=== PATIENT | male | born 1950 | race Caucasian/White ===

== ENCOUNTER 2017-06-08 16:31 | Inpatient (IN) | payer OTHER ==
[~2017-06-08] VITALS: Ht 185.4 cm; Wt 82.1 kg
--- NOTE | 2017-06-08 22:50 | NUR ---
PRE ADMISSION NOTE : The patient is a 67-year-old male who presents to [facility] for medically supervised withdrawal from ETOH. Patient reports NKA, is on Full Code, is on Cardiac Diet, is Fall and Seizures Precautions. The patient reports starting to use ETOH in 1965. Longest sober period was 10 years since 1980 to 1990. The patient denies a history of withdrawal-induced seizures, but often drinking to the point of blacking out. Patient denies history of SI/HI, denies history of audio and video hallucinations. Last used six bottles of beer 12 ounce each on 06/07/2017 at 2100. Upon intake assessment patient is alert and oriented x4 . CIWA 5. Patient reported the following symptoms of withdrawal: anxiety, restlessness, sweats, felt tremors, difficulty concentrating, anhedonia. Patient is cooperative, speech is clear and audible. Patient reports's "difficult hearing by right ear". Heart rate is regular. Patient denies SOB and chest pain. PERRLA, breathing is even and unlabored. VS: T: 98.8; BP: 158/88; HR: 72; RR:17; RA O2 SAT: 100%. Patient denies any pain at this time. Patient instructed on unit protocol of vitals Q4H and COWS/CIWA assessments. Patient verbalized understanding and agreement. Patient also instructed on policy regarding destruction of any controlled substances/prescriptions brought to facility, and handling of all medications. Patient verbalized understanding and agreement. Will complete admission assessment when patient is brought up to unit.
[2017-06-08 22:57] VITALS: BP 158/88
--- NOTE | 2017-06-08 22:57 | NUR ---
ADMISSION NOTE New patient is a 67 year old male admitted to [facility] on 06/08/2017 at 2257 for medically supervised safety withdrawal from Alcohol. Patient reports NKA. Patient placed on Full Code, Cardiac Diet, Fall and Seizures Precautions. Patient denies a history of withdrawal-induced seizures. Past Medical History: Coronary artery disease complicated by myocardial infarction; Dyslipidemia; Essential hypertension; Alcohol use disorder. Past Surgical History: Percutaneous coronary intervention with stent placement. Patient reports "I do not have PCP". Pre-assessment completed in intake. Patient unable provided UDS test at this time. Patient is ambulatory with steady gate, stable, A&Ox4, speech is clear. Height: 73 in, Weight:181 lbs by standing scale. VS upon admission: T: 98.8; BP: 158/88; HR: 72; RR:17; RA O2 SAT: 100%. Patient denies any pain at this time: "0/10". CIWA 5. The patient presented with anxiety, agitation, nervousness, tremors, diaphoresis, restless legs, and fatigue. Patient denies SI/HI. Upon initial assessment, patient's Respirations unlabored and even. Patient denies SOB and chest pain. Lungs Sounds are clear bilaterally. Bowel Sounds active in all x4 quadrants. Abdomen is soft and non-tender. PERRLA, brisk capillary refill, spoke maker equal and strong. Skin is warm and dry to touch. Patient has bruises on the BUE and BLE. Patient has laceration 2 cm on the left forearm. Dressing change with sterile gauze. Patient has closed healed laceration 8.5 cm with bruises on left scapula area. Pictures done and placed in chart. Patient reports the following Substances Use: 1 ."Alcohol PO "since 1965. Patient reports "consuming either three 22 ounce bottles of beer or six 12 ounce bottles of beer on a daily basis. Last used six bottles of beer 12 ounce each on 06/07/2017 at 2100. Longest sober period was 10 years since 1980 to 1990". Patient reports he is "never smoking ". Treatment History: " [facility] for thirty days in the 1980". Home Medications Reconciliation done. Patient oriented to his room, Nurse Call Light, [facility]. Encourage fluids as tolerated. Encourage to attend activities groups. All needs met. Safety measures on place. Call light within reach, bed in lowest position and locked, padded rails up bilaterally rails up bilaterally. Will continue to monitor closely.
--- NOTE | 2017-06-08 22:57 | NUR ---
ORDERED LORAZEPAM WAS NOT GIVEN Patient was admitted at 2257. Patient unable provided UDS test at this time.
[2017-06-08 23:23] LABS: ALANINE AMINOTRANSFERASE 23 U/L (16-63); ALKALINE PHOSPHATASE 79 U/L (50-136); AMYLASE 77 U/L (25-115); ASPARTATE AMINOTRANSFERASE 20 U/L (15-37); BILIRUBIN,TOTAL 2.2 mg/dL (0.2-1.0); CARBON DIOXIDE 28 mmol/L (21-32); CHLORIDE 102 mmol/L (98-107); CHOLESTEROL 191 mg/dL (<200); GLUCOSE 94 mg/dL (74-106); HDL CHOLESTEROL 99 mg/dL (40-60); POTASSIUM 3.8 mmol/L (3.5-5.1); TOTAL PROTEIN, SERUM 7.8 g/dL (6.4-8.2); TRIGLYCERIDES 107 MG/DL (30-150); UREA NITROGEN, BLOOD 19 mg/dL (7-18)
[2017-06-08 23:26] LABS: BASOPHILS # (AUTO) 0.1 K/uL (0.0-8.0); BASOPHILS % (AUTO) 0.7 % (0.0-2.0); EOSINOPHILS # (AUTO) 0.2 K/uL (0.0-0.7); EOSINOPHILS % (AUTO) 2.9 % (0.0-7.0); HEMATOCRIT 45.4 % (40-50); HEMOGLOBIN 15.6 G/DL (14.0-18.0); LYMPHOCYTES # (AUTO) 2.3 K/UL (0.8-4.8); MEAN CORPUSCULAR HEMOGLOBIN 30.2 UUG (27.0-31.0); MEAN CORPUSCULAR HGB CONC 34 g/dL (32.0-37.0); MEAN CORPUSCULAR VOLUME 88.2 FL (82.0-92.0); MONOCYTES # (AUTO) 0.6 K/UL (0.1-1.30); MONOCYTES % (AUTO) 7.5 % (0.0-11.0); NEUTROPHILS # (AUTO) 5.3 K/UL (1.8-8.9); NEUTROPHILS % (AUTO) 61.9 % (38.5-71.5); PLATELET COUNT (AUTO) 232 K/UL (150-450); RED BLOOD CELL COUNT(AUTO) 5.15 MIL/UL (4.7-6.1); WHITE BLOOD COUNT (AUTO) 8.5 K/UL (4.0-11.2)
[2017-06-08 23:39] LABS: ETHANOL < 3 MG/DL (0-0)
[2017-06-09] VITALS: BP 139/81
[2017-06-09] MEDS ORDERED: ASCO-340 PO (00:03)
[2017-06-09] MEDS ORDERED: LORA-588 PO (00:03)
[2017-06-09] MEDS ORDERED: NITR0.4T SL (00:03)
[2017-06-09] MEDS ORDERED: SULF1TAB48 PO (00:03)
[2017-06-09] MEDS ORDERED: METO25TA6 PO (00:03)
[2017-06-09] MEDS ORDERED: CLOP75TA33 PO (00:03)
[2017-06-09] MEDS ORDERED: UBID100C13 PO (00:03)
[2017-06-09] MEDS ORDERED: ASPI-618 PO (00:03)
[2017-06-09] MEDS ORDERED: ACET-2154 PO (00:03)
[2017-06-09] MEDS ORDERED: CHOL100045 PO (00:03)
[2017-06-09] MEDS ORDERED: ROSU5TAB PO (00:03)
[2017-06-09] MEDS ORDERED: MULT1TAB73 PO (00:03)
[2017-06-09 04:00] VITALS: BP 131/83
[2017-06-09 04:18] LABS: *AMPHETAMINE, URINE NEGATIVE (NEGATIVE); *BARBITURATE, URINE NEGATIVE (NEGATIVE); *CANNABINOID, URINE NEGATIVE (NEGATIVE); *COCCAINE, URINE NEGATIVE (NEGATIVE); *OPIATE, URINE NEGATIVE (NEGATIVE); *PHENCYCLIDINE SCREEN,URINE NEGATIVE (NEGATIVE)
--- NOTE | 2017-06-09 07:16 | NUR ---
END OF SHIFT NOTE: Patient is a 67 year old male admitted to [facility] on 06/08/2017 for medically supervised safety withdrawal from Alcohol, ordered 5 Day Ativan Taper. Patient reports NKA. Patient placed on Full Code, Cardiac Diet, Fall and Seizures Precautions. Patient denies a history of withdrawal-induced seizures. Past Medical History: Coronary artery disease complicated by myocardial infarction; Dyslipidemia; Essential hypertension; Alcohol use disorder. Past Surgical History: Percutaneous coronary intervention with stent placement. Patient reports the following Substances Use:."Alcohol PO "since 1965. Patient reports "consuming either three 22 ounce bottles of beer or six 12 ounce bottles of beer on a daily basis. Last used six bottles of beer 12 ounce each on 06/07/2017 at 2100. Longest sober period was 10 years since 1980 to 1990". Patient reports "never smoking ". Treatment History: " [facility] for thirty days in the 1980". Upon last assessment @0400 patient is CIWA 3. Patient presented with the following symptoms of withdrawal: mild anxiety, restlessness, sweats, felt tremors, and restlessness. Patient denies SI/HI. VS @0400: T: 98.8; BP: 158/88; HR: 72; RR:17; RA O2 SAT: 100%. Patient denies any pain at this time. Patient reports of difficult hearing by right ear. Respirations are even and unlabored. Patient denies SOB and chest pain. Heart rate is regular. Bowel Sounds active in all x4 quadrants. Abdomen is soft and non-tender. Skin is warm and dry to touch. Patient has bruises on the BUE and BLE. Patient has laceration 2 cm on the left forearm. Dressing change with sterile gauze. Patient has closed healed laceration 8.5 cm with bruises on left scapula area. Pictures done and placed in chart. Encourage fluids as tolerated. Encourage to attend activities groups. No Medications administrated during my shift. Patient slept 4 hours, intake 325 ml, voided x1. All needs met. Safety measures on place. Call light within reach, bed in lowest position and locked, padded rails up bilaterally. Patient endorsed to day shift nurse.
--- NOTE | 2017-06-09 07:45 | NUR ---
START OF SHIFT Rcvd client from ongoing nurse, client is in room, he is a/o x 3 (name, place, situation), he presents with anxious mood, flat affect. He reports chills, stomach cramps, restless legs and fatigue. Client denies any N/V/D or SI/HI. Encouraged client to increase fluid intake to facilitate detox. Encourage client to attend group therapy for skills to maintain sobriety. Client is a 67 y/o male admitted for withdrawal from alcohol. Client is on 5 day Ativan taper for withdrawal symptoms management (day 2), tolerating well. Last CIWA 3 @ 2400. Client had an uneventful night, he slept 4 hrs. He reports NKA, full code, regular. Client denies history of withdrawal-induced seizure. He is on seizure precautions. Call light within reach. Side rails up x2/padded, bed locked and in low position.
[2017-06-09 08:45] VITALS: BP 147/86
--- NOTE | 2017-06-09 09:02 | NUR ---
TB test administered ID to R forearm, client tolerated well.
[2017-06-09 12:37] VITALS: BP 130/87
[2017-06-09 16:55] VITALS: BP 139/88
--- NOTE | 2017-06-09 19:24 | NUR ---
END OF SHIFT Endorsed to incoming nurse, Client is a 67 y/o male admitted for withdrawal from alcohol. Client is on 5 day Ativan taper for withdrawal symptoms management (day 2), tolerating well. Last CIWA 8 @ 1700. Client is in bed, a/o x4, he presents with anxious mood. Adequate PO fluid intake 1500ml, void x 4, stool x 1. Client was not compliant with group therapy, encouragement needed. He reports NKA, full code, regular. Client denies history of withdrawal-induced seizure. He is on seizure precautions. Call light within reach. Side rails up x2/padded, bed locked and in low position.
[2017-06-09 20:00] VITALS: BP 136/91
--- NOTE | 2017-06-09 20:00 | NUR ---
START OF SHIFT Received 67 y/o, Male px admitted for withdrawal from alcohol. Px is alert oriented (name, place, situation). NKA, full code, regular. Px presents with anxious mood, flat affect. Px reports fatigue. Encouraged client to increase fluid intake to facilitate detox. Client denies history of withdrawal-induced seizure. He is on seizure precautions. Call light within reach. Side rails up x2/padded, bed locked and in low position.
[2017-06-10] VITALS: BP 139/80
[2017-06-10 04:00] VITALS: BP 120/81
--- NOTE | 2017-06-10 07:00 | NUR ---
END OF SHIFT Px is 67 y/o, Male admitted for withdrawal from alcohol. Px is alert oriented (name, place, situation). NKA, full code, regular. During the shift, Px presents with anxious mood, flat affect. Px reports fatigue. Encouraged client to increase fluid intake to facilitate detox. No PRN meds given. Last CIWA 4. Oral intake 900ml, voided 2x, no BM. Slept for 9.5hrs. Call light within reach. Side rails up x2/padded, bed locked and in low position.
--- NOTE | 2017-06-10 07:45 | NUR ---
START OF SHIFT Rcvd client from ongoing nurse, client is in bed, wearing IPCD (VTE 5) and tolerating well. Client is a/o x 4, he presents with anxious mood, flat affect. He reports feeling tired, restless legs, stomach cramps and chills. Client denies any N/V/D or SI/HI. Client is on anticoagulant therapy Clopidofrel 75mg daily. Encouraged client to increase fluid intake to facilitate detox. Encourage client to attend group therapy for skills to maintain sobriety. Client is a 67 y/o male admitted for withdrawal from alcohol. Client is on 5 day Ativan taper for withdrawal symptoms management (day 3), tolerating well. Last CIWA 4 @ 2400. Client had an uneventful night, he slept 9 hrs. He reports NKA, full code, regular. Client denies history of withdrawal-induced seizure. He is on seizure precautions. Call light within reach. Side rails up x2/padded, bed locked and in low position.
[2017-06-10 08:17] LABS: HEPATITIS B SURFACE AG Negative (Negative)
[2017-06-10 08:55] VITALS: BP 141/91
[2017-06-10 12:55] VITALS: BP 141/90
--- NOTE | 2017-06-10 12:57 | NUR ---
Nursing Notes 5 day Ativan taper changed to modified 4 day Ativan taper. 06/10/17 Ativan 1mg TID 06/11/17 Ativan 1mg Q12H Client notified and verbalized understanding.
[2017-06-10 16:55] VITALS: BP 129/86
--- NOTE | 2017-06-10 19:21 | NUR ---
END OF SHIFT Endorsed to incoming nurse, client is a 67 y/o male admitted for withdrawal from alcohol. Client is on 4 day Ativan taper for withdrawal symptoms management (day 3), tolerating well. Last CIWA 7 @ 1600. Adequate PPO fluid intake 1550mL, void x 3, stool x 1. Client is not compliant with group therapy d/withdrawal symptoms. He reports NKA, full code, regular. Client denies history of withdrawal-induced seizure. He is on seizure precautions. Call light within reach. Side rails up x2/padded, bed locked and in low position.
[2017-06-10 20:00] VITALS: BP 137/85
--- NOTE | 2017-06-10 20:00 | NUR ---
START OF SHIFT Received 67 y/o male admitted for withdrawal from alcohol. NKA, full code, regular. Ps is on seizure precautions. He presents with anxious mood, flat affect. Client is on anticoagulant therapy Clopidofrel 75mg daily. Encouraged client to increase fluid intake to facilitate detox. Client is on 5 day Ativan taper for withdrawal symptoms management, tolerating well. No complaints. CIWA 4. Call light within reach. Side rails up x2/padded, bed locked and in low position.
[2017-06-11] VITALS: BP 119/69
--- NOTE | 2017-06-11 | NUR ---
CIWA deferral CIWA deferred due that the px is sleeping, to assess if the px is awake per doctor's order. Respirations even and unlabored. We'll continue to monitor.
[2017-06-11 04:00] VITALS: BP 125/80
--- NOTE | 2017-06-11 07:17 | NUR ---
End of Shift Note Px is 67 y/o male admitted for withdrawal from alcohol. NKA, full code, regular. Ps is on seizure precautions. He presents with anxious mood, flat affect. During the shift. Encouraged client to increase fluid intake to facilitate detox. No complaints. Call light within reach. Side rails up x2/padded, bed locked and in low position. Oral intake of 1,750ml, voided 2x, BM 1x. Slept for 7 hrs. Well continue to monitor.
--- NOTE | 2017-06-11 07:47 | NUR ---
START OF SHIFT NOTE: Received report from lieutenant shift supervisor nurse. Pt is a 67 y/o male admitted for ETOH dependence. Pt is on an 5 day Ativan taper. Tolerating well. Pt is alert and oriented X4. Color good, skin warm and dry. Respirations even and unlabored. Resting in bed. Safety precautions observed. Call light within reach. Will continue to monitor.
[2017-06-11 08:16] VITALS: BP 142/80
--- NOTE | 2017-06-11 09:30 | NUR ---
VSS CIWA 1
[2017-06-11 12:24] VITALS: BP 135/66
--- NOTE | 2017-06-11 15:00 | NUR ---
VSS CIWA 1
[2017-06-11 17:23] VITALS: BP 148/81
--- NOTE | 2017-06-11 18:42 | NUR ---
END OF SHIFT REPORT: Report given to restaurant shift leader nurse. Pt is a 67 y/o male admitted for ETOH dependence. Pt is on an 5 day Ativan taper. Tolerating well. Pt is alert and oriented X4. Color good, skin warm and dry. Respirations even and unlabored. Vital signs have remained stable throughout shift. Last CIWA 1. Safety precautions observed. Call light within reach.
--- NOTE | 2017-06-11 19:30 | NUR ---
START OF SHIFT Report from AM nurse. 67 y/o male admitted on 06/08/17 for alcohol withdrawal. He is on a five day ativan taper. Last CIWA 1. NKA, full code, cardiac diet, on fall and seizure precautions. At change od shift patient reports feeling dysthymic, missing his dog. Denies SI or HI. Denies physical complaints or pain. Area on back with large bruise and abrased area (L scapula) with no open area noted. Call light within reach. Side rails up x2/padded, bed locked and in low position.
[2017-06-11 20:00] VITALS: BP 132/81
--- NOTE | 2017-06-12 00:01 | NUR ---
BETH deferred. Vital signs refused. Patient refused midnight vital signs. Stated he wants to sleep. BETH deferred for sleep.
--- NOTE | 2017-06-12 04:08 | NUR ---
0400 CIWA deferred. Vital signs refused. Patient refused 0400 vital signs. Stated he wants to sleep. CIWA deferred for sleep.
--- NOTE | 2017-06-12 06:51 | NUR ---
End of shift report Patient is a 67 year old male admitted on 06-08-17 for Alcohol detox. He has past medical history of CAD with history of VA, HTN, and Hyperlipidemia. He denies seizure history. Patient had fall prior to admission to [facility] with injury to L posterior upper back scapula area. Large bruised area with scab noted. No open area. Patient denies pain. Patients mood dysthymic due to missing his dog. Patient continues on 5 day Ativan taper. VS at 1999: BP 132/81, P 81, R 16, SPO2 98% on RA, T 97.8. CIWA 2. Intake 1053ml Output 2 voids Slept a total of 12 hours.
[2017-06-12 08:00] VITALS: BP 136/86
--- NOTE | 2017-06-12 08:15 | NUR ---
START OF SHIFT: RECEIVED PT A/O X 4.HE REPORTS HE FEELS GOOD AND EXPRESSED ENTHUSIASM TOWARD RECOVERY. ATIVAN TAPER COMPLETED. CIWA 2. ENCOURAGED GROUP ATTENDANCE TO IMPROVE COPING SKILLS AND PREVENT RELAPSE. ENCOURAGED INCREASED FLUIDS TO ASSIST IN FACILITATING DETOX PROCESS. WILL CONTINUE MONITOR AND OFFER SUPPORT.
[2017-06-12 12:00] VITALS: BP 141/88
[2017-06-12] MEDS ORDERED: LISI-603 PO (15:50)
[2017-06-12] MEDS ORDERED: METO25TA6 PO (15:50)
[2017-06-12] MEDS ORDERED: DIPH50CA37 PO (15:50)
[2017-06-12] MEDS ORDERED: ROSU5TAB PO (15:51)
[2017-06-12] MEDS ORDERED: CHOL100045 PO (15:51)
[2017-06-12] MEDS ORDERED: CLOP75TA33 PO (15:51)
[2017-06-12] MEDS ORDERED: ASPI-618 PO (15:51)
[2017-06-12 16:00] VITALS: BP 137/82
--- NOTE | 2017-06-12 18:40 | NUR ---
END OF SHIFT: PT COMPLETED ATIVAN TAPER. HE IS SCHEDULED FOR DISCHARGE TO RTC ON 06/13. HE STATES HE FEELS BETTER AND THE DETOX MEDS WERE EFFECTIVE. LAST CIWA 2. HE ATTENDED GROUPS AND INTERACTED WITH PEERS. HE STATES HE IS MOTIVATED TOWARD RECOVERY. NO PRNS GIVEN. WILL PASS SHIFT REPORT TO ONCOMING NIGHT NURSE.
[2017-06-12 20:00] VITALS: BP 145/77
--- NOTE | 2017-06-12 22:20 | NUR ---
START OF SHIFT Report from AM nurse. Patient is a 67 y/o male admitted on 06/08/17 for alcohol withdrawal. He completed a five day ativan taper. Last CIWA 2. NKA, full code, cardiac diet, on fall and seizure precautions. Patient with history of CAD, HTN, Hyperlipidemia and history of PR. Vital signs have remained stable. Patient with Intermittent Pneumatic Compression device for prevention of DVT. Patient in bed at change of shift using the device without issue.Patient reports feeling good. Denies SI or HI. Denies physical complaints or pain. Area on back with large bruise and abrased area (L scapula) with no open area noted. Call light within reach. Side rails up x2/padded, bed locked and in low position. Addendum: 06/12/17 at 2230 by JONAH CHEUNG RN time of note [id number]
--- NOTE | 2017-06-13 00:10 | NUR ---
CIWA deferred. Vital signs refused. Patient refused vital signs at 0000. CIWA deferred for sleep.
--- NOTE | 2017-06-13 04:05 | NUR ---
CIWA deferred. Vital signs refused. Patient refused vital signs at 0400. CIWA deferred for sleep.
--- NOTE | 2017-06-13 06:55 | NUR ---
End of shift report Patient is a 67 year old male admitted on 06-08-17 for Alcohol Detox. He has past medical history of CAD with history of SD, HTN, and Hyperlipidemia. He denies seizure history. Patient had fall prior to admission to [facility] with injury to L posterior upper back scapula area. Large bruised area with scab noted. No open area. Patient denies pain. Patients mood stable with noted planned discharge today. Patient completed a 5 day Ativan taper. VS at 1999: BP145/77, P 70, R 16, SPO2 98% on RA, T 98.6. CIWA 1. Intake 2820 ml Output 4 voids, 1 stool. Slept a total of 8 hours. Report given to AM nurse.
--- NOTE | 2017-06-13 07:15 | NUR ---
start of shift note: received pt from shift manager nurse, [facility]. pts last ciwa 1 and pt slept for 8 hours. pt will be discharging today will assist pt in discharging and will continue to meet pt's needs.
[2017-06-13 08:57] VITALS: BP 122/77
--- NOTE | 2017-06-13 09:30 | NUR ---
discharge note: pt left the unit in stable condition no s/s of pain, withdrawal/ or discomfort. pt teaching administered and pt verbalized understanding, pt's V/S WNL. pt's personal belongings were returned. pt will be transferred to [facility] via private car
== END 2017-06-13 09:31 | DRG 895 ==
LOC: SRC 20:47
PROVIDERS: ADMIT Internal Medicine; ATTEND Internal Medicine
PROC: HZ2ZZZZ Detoxification Services for Substance Abuse Treatment (ICD-10-PCS; principal; 2017-06-08)
PROC: HZ31ZZZ Individual Counseling for Substance Abuse Treatment, Behavioral (ICD-10-PCS; 2017-06-09)
PROC: HZ41ZZZ Group Counseling for Substance Abuse Treatment, Behavioral (ICD-10-PCS; 2017-06-09)
DX: F10.230 Alcohol dependence with withdrawal, uncomplicated (principal); I10 Essential (primary) hypertension; E78.5 Hyperlipidemia, unspecified; E86.0 Dehydration; I25.2 Old myocardial infarction; I25.10 Atherosclerotic heart disease of native coronary artery without angina pectoris; Z95.5 Presence of coronary angioplasty implant and graft; Z91.89 Other specified personal risk factors, not elsewhere classified; Y90.0 Blood alcohol level of less than 20 mg/100 ml; Z79.899 Other long term (current) drug therapy; Z79.82 Long term (current) use of aspirin; Z79.02 Long term (current) use of antithrombotics/antiplatelets; Z83.3 Family history of diabetes mellitus; Z81.1 Family history of alcohol abuse and dependence; Z82.49 Family history of ischemic heart disease and other diseases of the circulatory system; Z80.9 Family history of malignant neoplasm, unspecified
CPT/HCPCS: 36415; 70030-TC; 80307; 83735; 85025; 86580; 86592; 86705; 86803; 87340; 87806; G0480